=== PATIENT | male | born 1990 | race Caucasian/White ===

== ENCOUNTER 2016-07-04 02:30 | Emergency (ER) | payer BC ==
[~2016-07-04] VITALS: Ht 185.4 cm; Wt 99.8 kg
[2016-07-04 02:37] VITALS: BP 128/68
--- NOTE | 2016-07-04 02:44 | NUR ---
TO ER BED 5
--- NOTE | 2016-07-04 03:05 | NUR ---
Patient being evaluated by physician at bedside.
--- NOTE | 2016-07-04 03:05 | NUR ---
Wing corbett in ED - 07/04/16 at 0310 by MEDJIM Patient being evaluated by physician at bedside.
[2016-07-04 03:34] VITALS: BP 135/73
--- NOTE | 2016-07-04 03:34 | NUR ---
Patient discharged with v/s stable. Written and verbal after care instructions given and explained. Patient alert, oriented and verbalized understanding of instructions. Ambulatory with steady gait. All questions addressed prior to discharge. ID band removed. Patient advised to follow up with PMD. Rx of Cipro otic solution given. Patient educated on indication of medication including possible reaction and side effects. Opportunity to ask questions provided and answered.
== END 2016-07-04 03:34 | disposition home or self-care (01) ==
LOC: MED 02:30
DX: S00.412A Abrasion of left ear, initial encounter (principal); Z98.890 Other specified postprocedural states; X58.XXXA Exposure to other specified factors, initial encounter; Y93.89 Activity, other specified; Y92.89 Other specified places as the place of occurrence of the external cause; Y99.8 Other external cause status